=== PATIENT | male | born 1965 | race Caucasian/White ===

== ENCOUNTER 2016-06-16 18:13 | Emergency (ER) | payer MEDICAID ==
[~2016-06-16] VITALS: Ht 172.7 cm; Wt 80.0 kg
[2016-06-16 18:14] VITALS: BP 113/68; PULSE 86; RESP 24; TEMP 97.8; O2SAT 97
--- NOTE | 2016-06-16 19:52 | PD ---
HPI Chief Complaint: Cold / Flu Symptoms Time Seen by Provider: 19:47 Travel History International Travel<30 days: No Contact w/Intl Traveler<30days: No Traveled to known affect area: No History of Present Illness HPI 50-year-old white male presents to emergency department with a four-day history of flu symptoms according to the patient. He states that he has had fever and chills, headache, runny nose, congestion, cough, sore throat, some nausea and diarrhea. No vomiting. Positive myalgias, arthralgias and general malaise. He did not get the flu shot this year. No abdominal pain. No dysuria or frequency. No rashes or lesions. PFSH Past Medical History Medical History: Denies Significant Hx Tetanus Vaccination: < 5 Years Past Surgical History Surgical History: No Previous Surgery Social History Alcohol Use: No Tobacco Use: Yes Allergies-Medications (Allergen,Severity, Reaction): Coded Allergies: No Known Allergies (Unverified , 06/16/16) Reported Meds & Prescriptions Reported Meds & Active Scripts Active Tessalon Perles (Benzonatate) 100 Mg Cap 200 Mg PO TID PRN Review of Systems Except as stated in HPI: all other systems reviewed are Neg Physical Exam Narrative GENERAL: Well-developed, well-nourished in no apparent distress. Nontoxic appearing. HEAD: Normocephalic, atraumatic. EYES: Pupils equal round and reactive. Extraocular motions intact. No scleral icterus. No injection or drainage. ENT: Nose clear. Throat without erythema, tonsillar hypertrophy or exudate. Uvula midline. Airway patent. NECK: Trachea midline. Supple, nontender, moves head freely. No central bony tenderness or spasm. CARDIOVASCULAR: Regular rate and rhythm without murmurs, gallops, or rubs. RESPIRATORY: Clear to auscultation. Breath sounds equal bilaterally. No wheezes , rales, or rhonchi. GASTROINTESTINAL: Abdomen soft, non-tender, nondistended. No hepato-splenomegaly , or palpable masses. No guarding. EXTREMITIES: No clubbing, cyanosis, or edema. No joint tenderness. BACK: Nontender without deformity. No flank tenderness. NEUROLOGICAL: Awake, alert and oriented x 3 .Cranial nerves grossly intact. Motor and sensory grossly within normal limits. Normal speech. Data Data Last Documented VS Vital Signs Date Time Temp Pulse Resp B/P Pulse Ox O2 Delivery O2 Flow Rate FiO2 06/16/16 18:14 97.8 86 24 113/68 97 Room Air Orders Ketorolac Inj (Toradol Inj) (06/16/16 20:00) Chlorphenir-Hydrocodone Liq (Tussionex L (06/16/16 20:00) MDM Medical Decision Making Medical Screen Exam Complete: Yes Emergency Medical Condition: Yes Medical Record Reviewed: Yes Differential Diagnosis MDM: High Differential diagnoses: Pneumonia, bronchitis, URI, influenza, pharyngitis Narrative Course Patient given Toradol 60 mg IM, and 1 teaspoon of Tussionex by mouth. This is influenza-like illness Diagnosis Primary Impression: Influenza-like illness Patient Instructions: General Instructions Departure Forms: Tests/Procedures, Work Release Special Instructions: No work 3-5 days. Additional Instructions: Rest. Increase fluids. 3 Advil every 6 hours. Tessalon Perles for cough. Recheck with a primary care doctor in the next 3-5 days. Return to the ER if any problems or worsening. Med/Other Pt SpecificInfo: Prescription(s) given Scripts Benzonatate (Tessalon Perles)100 Mg [id number] Mg PO TID PRN (COUGH) #30 CAP Ref 0 Prov:Sebastian Chan MD 06/16/16 Disposition: 01 DISCHARGE HOME Condition: Stable Serge Gomez Jun 16, 2016 19:52
[2016-06-16] MEDS ORDERED: BENZ100 PO (19:53)
[2016-06-16] MEDS ORDERED: CHLORPHENIR/HYDROCOD LIQUID 8 MG/10 MG/5 ML CUP PO ONE (20:00)
[2016-06-16] MEDS ORDERED: KETOROLAC TROMETHAMINE 60 MG/2 ML (IM) VIAL IM ONE (20:00)
== END 2016-06-16 21:24 | disposition home or self-care (01) ==
LOC: NEPB 18:13
DX: R50.9 Fever, unspecified (principal); R51 Headache; R05 Cough; R07.0 Pain in throat; R11.0 Nausea; R19.7 Diarrhea, unspecified; M79.1 Myalgia; M25.50 Pain in unspecified joint; R53.81 Other malaise; Z72.0 Tobacco use
CPT/HCPCS: 96372; 99283; J1885

== ENCOUNTER 2017-05-01 21:06 | Emergency (ER) | payer MEDICAID, OTHER ==
[~2017-05-01 21:06] MED LIST: BENZ100 PO
[2017-05-01 21:09] VITALS: BP 131/83; PULSE 83; RESP 15; TEMP 99.2; O2SAT 97
[2017-05-01 21:39] VITALS: BP 119/73; PULSE 80; RESP 16; O2SAT 97
[2017-05-01] MEDS ORDERED: SODIUM CHLOR 0.9% 1000 ML INJ 1,000 ML IV ONE (21:45)
[2017-05-01] MEDS ORDERED: SODIUM CHLORIDE 0.9% FLUSH 10 ML FLUSH IVF PRN (21:45)
[2017-05-01] MEDS ORDERED: ONDANSETRON HCL 4 MG/2 ML VIAL IVP ONE (21:45)
--- NOTE | 2017-05-01 21:54 | PD ---
HPI Chief Complaint: Complaint Time Seen by Provider: 21:34 Travel History International Travel<30 days: No Contact w/Intl Traveler<30days: No Traveled to known affect area: No History of Present Illness HPI Patient is a 51-year-old male presenting to emergency for evaluation of hematuria. Patient states he noticed his urine was bloody is morning, this continued throughout the day. He reports a history of a slow stream but denies any dysuria, frequency, back pain. He has a history of a kidney stone, he states he passed one a month ago but was never evaluated after that. Patient states he feels slightly nauseous but has not vomited. He denies any fevers or chills. He denies any significant past medical history, his primary care provider is Dr. Lyle. [facility] Past Medical History Medical History: Denies Significant Hx Kidney Stones: Yes Tetanus Vaccination: Unknown Influenza Vaccination: No Past Surgical History Surgical History: No Previous Surgery Social History Alcohol Use: No Tobacco Use: Yes Substance Use: No Allergies-Medications (Allergen,Severity, Reaction): Coded Allergies: No Known Allergies (Unverified , 06/16/16) Reported Meds & Prescriptions Reported Meds & Active Scripts Active Hydrocodone-Acetaminophen 5-325 mg Tab 1 Tab PO Q6H PRN Zofran Odt (Ondansetron Odt) 4 Mg Tab 4 Mg SL Q6HR PRN Review of Systems Except as stated in HPI: all other systems reviewed are Neg Gastrointestinal: Positive: Nausea Genitourinary: Positive: Hematuria, Hesitancy Physical Exam Narrative GENERAL: Well-developed, well-nourished, well-appearing male. Resting in no acute distress. SKIN: Warm and dry. HEAD: Atraumatic. Normocephalic. EYES: Pupils equal and round. No scleral icterus. No injection or drainage. ENT: No nasal bleeding or discharge. Mucous membranes pink and moist. NECK: Trachea midline. No JVD. CARDIOVASCULAR: Regular rate and rhythm. RESPIRATORY: No accessory muscle use. Clear to auscultation. Breath sounds equal bilaterally. GASTROINTESTINAL: Abdomen soft, non-tender, nondistended. Hepatic and splenic margins not palpable. MUSCULOSKELETAL: Extremities without clubbing, cyanosis, or edema. No obvious deformities. No CVAT bilaterally NEUROLOGICAL: Awake and alert. No obvious cranial nerve deficits. Motor grossly within normal limits. Five out of 5 muscle strength in the arms and legs. Normal speech. PSYCHIATRIC: Appropriate mood and affect; insight and judgment normal. Data Data Last Documented VS Vital Signs Date Time Temp Pulse Resp B/P (MAP) Pulse Ox O2 Delivery O2 Flow Rate FiO2 05/02/17 00:20 05/01/17 21:39 80 16 97 Room Air 05/01/17 21:09 99.2 Orders Orders Complete Blood Count With Diff (05/01/17 21:41) Comprehensive Metabolic Panel (05/01/17 21:41) Ua Includes Microscopic (05/01/17 21:41) Ct Abd/Pel W/O Iv Contrast (05/01/17 21:41) Iv Access Insert/Monitor (05/01/17 21:41) Ondansetron Inj (Zofran Inj) (05/01/17 21:45) Sodium Chloride 0.9% Flush (Ns Flush) (05/01/17 21:45) Sodium Chlor 0.9% 1000 Ml Inj (Ns 1000 M (05/01/17 21:45) Creatine Kinase (Cpk) (05/01/17 22:45) Ed Discharge Order (05/01/17 23:32) Labs Laboratory Tests Test 05/01/17 21:45 05/01/17 22:25 White Blood Count 10.0 TH/MM3 Red Blood Count 4.87 MIL/MM3 Hemoglobin 14.5 GM/DL Hematocrit 42.1 % Mean Corpuscular Volume 86.6 FL Mean Corpuscular Hemoglobin 29.7 PG Mean Corpuscular Hemoglobin Concent 34.4 % Red Cell Distribution Width 13.2 % Platelet Count 348 TH/MM3 Mean Platelet Volume 8.0 FL Neutrophils (%) (Auto) 61.8 % Lymphocytes (%) (Auto) 26.5 % Monocytes (%) (Auto) 6.3 % Eosinophils (%) (Auto) 4.5 % Basophils (%) (Auto) 0.9 % Neutrophils # (Auto) 6.2 TH/MM3 Lymphocytes # (Auto) 2.7 TH/MM3 Monocytes # (Auto) 0.6 TH/MM3 Eosinophils # (Auto) 0.5 TH/MM3 Basophils # (Auto) 0.1 TH/MM3 CBC Comment DIFF FINAL Differential Comment Blood Urea Nitrogen 12 MG/DL Creatinine 0.91 MG/DL Random Glucose 90 MG/DL Total Protein 7.0 GM/DL Albumin 3.6 GM/DL Calcium Level 8.9 MG/DL Alkaline Phosphatase 56 U/L Aspartate Amino Transf (AST/SGOT) 22 U/L Alanine Aminotransferase (ALT/SGPT) 27 U/L Total Bilirubin 0.3 MG/DL Sodium Level 140 MEQ/L Potassium Level 3.9 MEQ/L Chloride Level 106 MEQ/L Carbon Dioxide Level 23.6 MEQ/L Anion Gap 10 MEQ/L Estimat Glomerular Filtration Rate 88 ML/MIN Total Creatine Kinase 140 U/L Urine Color RED Urine Turbidity HAZY Urine pH 6.0 Urine Specific [place] 1.028 Urine Protein 100 mg/dL Urine Glucose (UA) NEG mg/dL Urine Ketones TRACE mg/dL Urine Occult Blood LARGE Urine Nitrite NEG Urine Bilirubin NEG Urine Urobilinogen 2.0 MG/DL Urine Leukocyte Esterase SMALL Urine RBC /hpf Urine Calcium Oxalate Crystals FEW /hpf Urine Mucus FEW /lpf Urine Yeast (Budding) MANY MDM Medical Decision Making Medical Screen Exam Complete: Yes Emergency Medical Condition: Yes Interpretation(s) Vital Signs Date Time Temp Pulse Resp B/P (MAP) Pulse Ox O2 Delivery O2 Flow Rate FiO2 05/01/17 21:39 80 16 119/73 (88) 97 Room Air 05/01/17 21:09 99.2 83 15 131/83 (99) 97 Room Air Differential Diagnosis UTI versus kidney stone versus obstruction versus other Narrative Course Patient is a 51-year-old male presenting to the arms evaluation of hematuria. He denies any significant pain. His vital signs are stable. He reports a history of passing a kidney stone last month but was never evaluated formally for it. Labs and imaging were ordered and pending. IV fluids and nausea medication ordered. CT scan of the abdomen and pelvis which was read by radiologist shows bilateral renal stones and 3 calcified stones within the urinary bladder. No evidence of hydronephrosis or hydroureter on either side. CBC with no acute findings Chemistry and urinalysis are pending. Care of patient transferred to my attending physician who will determine patient 's disposition. Scripts Hydrocodone-Acetaminophen (Hydrocodone-Acetaminophen) 5-325 mg Tab 1 TAB PO Q6H Y for PAIN, #9 TAB 0 Refills Prov: Alecia Pierre MD 05/01/17 Ondansetron Odt (Zofran Odt) 4 Mg Tab 4 MG SL Q6HR Y for Nausea/Vomiting, #7 TAB 0 Refills Prov: Alecia Pierre MD 05/01/17 Venus Umana [employer] May 01, 2017 21:54
[2017-05-01 22:05] LABS: AUTOMATED NEUTROPHIL # 6.2 TH/MM3 (1.8-7.7); BASOPHIL # 0.1 TH/MM3 (0-0.2); BASOPHIL % 0.9 % (0.0-2.0); EOSINOPHIL # 0.5 TH/MM3 (0-0.4); EOSINOPHIL % 4.5 % (0.0-4.0); HEMATOCRIT 42.1 % (39.0-51.0); HEMOGLOBIN 14.5 GM/DL (13.0-17.0); LYMPH % 26.5 % (9.0-44.0); LYMPHOCYTE # 2.7 TH/MM3 (1.0-4.8); MEAN CELL VOLUME 86.6 FL (80.0-100.0); MEAN CORPUSCULAR HEMOGLOBIN 29.7 PG (27.0-34.0); MEAN CORPUSCULAR HGB CONC 34.4 % (32.0-36.0); MONO % 6.3 % (0.0-8.0); MONOCYTE # 0.6 TH/MM3 (0-0.9); NEUT % 61.8 % (16.0-70.0); PLATELET COUNT 348 TH/MM3 (150-450); RED BLOOD COUNT 4.87 MIL/MM3 (4.50-5.90); RED CELL DISTRIBUTION WIDTH 13.2 % (11.6-17.2)
[2017-05-01 22:37] LABS: ALT (GPT) 27 U/L (12-78)
[2017-05-01 22:38] LABS: ALKALINE PHOSPHATASE 56 U/L (45-117); TOTAL BILIRUBIN ADULT 0.3 MG/DL (0.2-1.0)
--- NOTE | 2017-05-01 22:38 | RADRPT ---
EXAM DATE/TIME: 05/01/2017 22:02 [place] COMPARISON: No previous studies available for comparison. INDICATIONS : Hematuria. ORAL CONTRAST: No oral contrast ingested. RADIATION DOSE: 11.09 CTDIvol (mGy) MEDICAL HISTORY : Renal calculi. SURGICAL HISTORY : None. ENCOUNTER: Initial ACUITY: 1 day PAIN SCALE: 5/10 LOCATION: Bilateral flank TECHNIQUE: Renal colic protocol. Volumetric scanning of the abdomen and pelvis was performed. Using automated exposure control and adjustment of the mA and/or kV according to patient size, radiation dose was kep t as low as reasonably achievable to obtain optimal diagnostic quality images. DICOM format image da ta is available electronically for review and comparison. FINDINGS: Right side: 3 mm calcified stone lower pole collecting system. There is a 6 mm calcified stone in the renal pelv is. No evidence of hydronephrosis. No calcified stones along the course of the right ureter. Left side: There are 2 calcified stones, 6 mm in the upper pole and 2 mm in the lower pole. No evidence of hydr onephrosis. No calcified stones along the course of the left ureter. Bladder: There are 3 calcified stones within the lumen of the dependent bladder noted midline, the largest of which measures 10 mm. Bladder margins are smooth. Other: No calcified gallstones in a contracted gallbladder. No dilated loops of small or large bowel the vi sualized lower lungs are clear. CONCLUSION: Bilateral renal stones and 3 calcified stones within the urinary bladder. No evidence of hydronephro sis or hydroureter on either side. Mark Dejesus MD on May 01, 2017 at 22:31 Board Certified Radiologist. This report was verified electronically.
[2017-05-01 22:43] LABS: ALBUMIN 3.6 GM/DL (3.4-5.0); AST (GOT) 22 U/L (15-37); BICARBONATE 23.6 MEQ/L (21.0-32.0); BLOOD UREA NITROGEN 12 MG/DL (7-18); CALCIUM 8.9 MG/DL (8.5-10.1); CHLORIDE 106 MEQ/L (98-107); CREATININE 0.91 MG/DL (0.60-1.30); GLOMERULAR FILTRATION RATE 88 ML/MIN (>89); GLUCOSE,RANDOM 90 MG/DL (74-106); SODIUM (NA) 140 MEQ/L (136-145)
[2017-05-01 22:55] LABS: BILIRUBIN, URINE NEG (NEG); BLOOD, URINE LARGE (NEG); CALCIUM OXALATE CRYSTALS,URINE FEW /hpf; GLUCOSE,URINE NEG (NEG); KETONE, URINE TRACE mg/dL (NEG); MUCUS URINE FEW /lpf (OCC); NITRITE,URINE NEG (NEG); URINE LEUKOCYTE ESTERASE SMALL (NEG)
[2017-05-01 22:57] LABS: URINE COLOR RED (YELLW/STRAW)
[2017-05-01] MEDS ORDERED: ZOFR4TAB3 SL (23:37)
[2017-05-01] MEDS ORDERED: HYDR-3516 PO (23:37)
--- NOTE | 2017-05-01 23:37 | PD ---
Data Data Last Documented VS Vital Signs Date Time Temp Pulse Resp B/P (MAP) Pulse Ox O2 Delivery O2 Flow Rate FiO2 05/02/17 00:20 05/01/17 21:39 80 16 97 Room Air 05/01/17 21:09 99.2 Orders Orders Complete Blood Count With Diff (05/01/17 21:41) Comprehensive Metabolic Panel (05/01/17 21:41) Ua Includes Microscopic (05/01/17 21:41) Ct Abd/Pel W/O Iv Contrast (05/01/17 21:41) Iv Access Insert/Monitor (05/01/17 21:41) Ondansetron Inj (Zofran Inj) (05/01/17 21:45) Sodium Chloride 0.9% Flush (Ns Flush) (05/01/17 21:45) Sodium Chlor 0.9% 1000 Ml Inj (Ns 1000 M (05/01/17 21:45) Creatine Kinase (Cpk) (05/01/17 22:45) Ed Discharge Order (05/01/17 23:32) Labs Laboratory Tests Test 05/01/17 21:45 05/01/17 22:25 White Blood Count 10.0 TH/MM3 Red Blood Count 4.87 MIL/MM3 Hemoglobin 14.5 GM/DL Hematocrit 42.1 % Mean Corpuscular Volume 86.6 FL Mean Corpuscular Hemoglobin 29.7 PG Mean Corpuscular Hemoglobin Concent 34.4 % Red Cell Distribution Width 13.2 % Platelet Count 348 TH/MM3 Mean Platelet Volume 8.0 FL Neutrophils (%) (Auto) 61.8 % Lymphocytes (%) (Auto) 26.5 % Monocytes (%) (Auto) 6.3 % Eosinophils (%) (Auto) 4.5 % Basophils (%) (Auto) 0.9 % Neutrophils # (Auto) 6.2 TH/MM3 Lymphocytes # (Auto) 2.7 TH/MM3 Monocytes # (Auto) 0.6 TH/MM3 Eosinophils # (Auto) 0.5 TH/MM3 Basophils # (Auto) 0.1 TH/MM3 CBC Comment DIFF FINAL Differential Comment Blood Urea Nitrogen 12 MG/DL Creatinine 0.91 MG/DL Random Glucose 90 MG/DL Total Protein 7.0 GM/DL Albumin 3.6 GM/DL Calcium Level 8.9 MG/DL Alkaline Phosphatase 56 U/L Aspartate Amino Transf (AST/SGOT) 22 U/L Alanine Aminotransferase (ALT/SGPT) 27 U/L Total Bilirubin 0.3 MG/DL Sodium Level 140 MEQ/L Potassium Level 3.9 MEQ/L Chloride Level 106 MEQ/L Carbon Dioxide Level 23.6 MEQ/L Anion Gap 10 MEQ/L Estimat Glomerular Filtration Rate 88 ML/MIN Total Creatine Kinase 140 U/L Urine Color RED Urine Turbidity HAZY Urine pH 6.0 Urine Specific [place] 1.028 Urine Protein 100 mg/dL Urine Glucose (UA) NEG mg/dL Urine Ketones TRACE mg/dL Urine Occult Blood LARGE Urine Nitrite NEG Urine Bilirubin NEG Urine Urobilinogen 2.0 MG/DL Urine Leukocyte Esterase SMALL Urine RBC /hpf Urine Calcium Oxalate Crystals FEW /hpf Urine Mucus FEW /lpf Urine Yeast (Budding) MANY MDM Medical Record Reviewed: Yes Supervised Visit with SEEMA: No Interpretation(s) Last Impressions Abdomen/Pelvis CT 05/01/172140 Signed Impressions: Service Date/Time: Monday, May 01, 2017 22:02 - CONCLUSION: Bilateral renal stones and 3 calcified stones within the urinary bladder. No evidence of hydronephrosis or hydroureter on either side. Mark Dejesus MD Narrative Course During the course of the patients emergency department visit, the patients history, examination, and differential diagnosis were reviewed with the patient. The patient was placed on a gambling monitor with oximetry and frequent blood pressure monitoring. The patient had IV access obtained and blood work sent for analysis. The patient's case was checked out to me by Venus at the conclusion of her shift. Please see her initial history and physical. The patient was pending urinalysis results and CPK result. The patient is a 51-year -old male who presents with hematuria. He reports that he has a history of kidney stone and passed one 1 month ago. The patient was initially provided normal saline a 1 L IV fluid bolus, Zofran 4 mg IV for nausea. The patients laboratory studies were reviewed and remarkable for a CBC that is remarkable for an eosinophilia 4.5, CMP is remarkable for a GFR of 88, CPK 140, urinalysis shows 100 protein trace ketones large occult blood innumerable rbc' s. Leukocyte esterase, calcium oxalate crystals, few mucus. Radiology studies were reviewed and remarkable for a CT scan of the abdomen and pelvis that shows bilateral renal stones with 3 calcified urinary bladder stones. No acute obstructive uropathy. The patient will be discharged home to follow-up with the urologist. He is given the name of the urologist on-call, Dr. Raymundo for follow-up. The patient is resting comfortably and feels better, is alert and in no distress. The patients results and examination findings were discussed with the patient. The repeat examination is unremarkable and benign. The history, exam, diagnostic testing, and current condition do not suggest any significant pathology to warrant further testing, continued ED treatment, admission, or surgical evaluation at this point. The vital signs have been stable. The patient does not have uncontrollable pain, intractable vomiting, or other significant symptoms. The patient's condition is stable and appropriate for discharge. The patient will pursue further outpatient evaluation with a primary care physician or other designated or consulting physician as indicated in the discharge instructions. The patient expressed understanding and was agreeable with this plan. Diagnosis Primary Impression: Kidney stone Additional Impressions: Bladder stone Hematuria Qualified Codes: R31.0 - Gross hematuria Referrals: Rich Raymundo MD call for appointment Patient Instructions: Bladder Stones (ED), General Instructions, Hematuria (ED) , Kidney Stones (ED) Scripts Hydrocodone-Acetaminophen (Hydrocodone-Acetaminophen) 5-325 mg Tab 1 TAB PO Q6H Y for PAIN, #9 TAB 0 Refills Prov: Alecia Pierre MD 05/01/17 Ondansetron Odt (Zofran Odt) 4 Mg Tab 4 MG SL Q6HR Y for Nausea/Vomiting, #7 TAB 0 Refills Prov: Alecia Pierre MD 05/01/17 Disposition: 01 DISCHARGE HOME Condition: Stable Alecia Pierre MD May 01, 2017 23:37
== END 2017-05-02 00:21 | disposition home or self-care (01) ==
LOC: NEPE 21:06
DX: N20.0 Calculus of kidney (principal); N21.0 Calculus in bladder; Z72.0 Tobacco use
CPT/HCPCS: 74176; 80053; 81001; 82550; 85025; 96374; 99285; J2405; J7030